=== PATIENT | male | born 1990 | race Caucasian/White ===

== ENCOUNTER 2020-05-05 18:54 | Emergency (ER) | payer SELFPAY ==
[~2020-05-05] VITALS: Ht 180.3 cm; Wt 131.5 kg
[2020-05-05 19:00] VITALS: BP 132/84
== END 2020-05-05 21:28 | disposition home or self-care (01) ==
LOC: ER 18:54 → EDBD 18:54 → ER 21:28
DX: S89.92XA Unspecified injury of left lower leg, initial encounter (principal); V89.2XXA Person injured in unspecified motor-vehicle accident, traffic, initial encounter; Y93.89 Activity, other specified; Y92.89 Other specified places as the place of occurrence of the external cause; Y99.8 Other external cause status
CPT/HCPCS: 73562; 73590

== ENCOUNTER 2025-02-06 10:23 | Emergency (ER) | payer MEDICAID, OTHER ==
[~2025-02-06] VITALS: Ht 182.9 cm; Wt 161.5 kg
--- NOTE | 2025-02-06 10:43 | ED.PDOC ---
HPI (NEURO) HPI Comments HPI: Initial Vitals BP: HR: RR: O2 Sat: Temp: Past Medical history: Denies Past Surgical history: Denies Medications: Denies Social History: Occasional ETOH. Denies smoking and drug use. Allergies: NKDA HPI: Poor Historian. 34-year-old male presents to emergency depart for evaluation of dizziness vertigo-like presentation worse in the morning and worse with head movement with the associated nausea and vomiting. His last time he had vomiting with this past Monday however he still has the vertigo/dizziness. Onset of symptoms last . Denies any other acute symptoms. Denies any pain anywhere else in his body. REVIEW OF SYSTEMS: CONSTITUTIONAL: Denies acute: fever, diaphoresis, chills, HEAD: Denies acute: headache, photophobia Eyes: Denies acute: Double vision, vision loss, eye pain, eye discharge. EARS: Denies acute: tinnitus, hearing loss, ear discharge, ear pain, THROAT: Denies acute: sore throat, swelling, difficulty swallowing , pain with swallowing, change in voice. NECK: Denies acute: neck pain, neck swelling, stiff neck. HEART: Denies acute : chest pain, palpitations, LUNGS: Denies acute: SOB, wheezing, cough, hemoptysis ABDOMEN: Denies acute: abdominal pain, Nausea, Vomiting, diarrhea, melena , hematemesis, hematochezia SKIN: Denies acute: rash, redness, lesions, itchiness. EXTREMITIES: Denies acute: calf pain, numbness, tingling, weakness, denies pain in extremity. Denies acute: Low back pain. Neuro: Denies acute: focal neurological deficit, motor or sensory focal neurological deficit, tremors, seizure like activity, confusion, change in mental status, loss of bowel or bladder function, cauda equina like symptoms. : Denies acute: dysuria, hematuria, flank pain, increase in urinary frequency. PSYCH: Denies acute: hallucination, suicidal ideation, homicidal ideation. PHYSICAL EXAM: General: ---mild-----acute distress, awake and alert. Head: normocephalic, atraumatic. Neck: supple, trachea is midline, no swelling. Throat: Normal phonation. Eyes:, no erythema, no purulent discharge, no proptosis, no icterus. Heart: regular rate, regular rhythm, no significant murmur appreciated. Lungs: no apparent respiratory distress, Able to speak in full sentences. No wheezing, no rhonchi, no crackles. No stridors Clear to auscultation bilaterally. Abdomen: non tender to palpation, non distended, soft, no guarding, no rebound, + bowel sounds. Obese Neuro: Awake, Alert, oriented to name, self, situation, follows commands GCS=15. Speech is normal. Skin: no petechia, no purpura, no cyanosis, non-pale, not jaundice. Lower extremities: --trace bilateral - Pitting edema no deformity, no focal swelling, no calf TTP. Makes eye contact. moves all four extremities. Face: no apparent facial droop. Ambulating in the ED independently. Ears: Normal appearing TM b/l, Stroke: finger to nose cerebellar testing is intact. No pronator drift. 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 No nuchal rigidity, Kernig's sign, Brudzinski's sign, no meningeal signs. ED COURSE: DISCLAIMER: This medical document was created using an electronic medical record system with voice recognition software and computerized dictation system. Although this document has been carefully reviewed, there might still be some phonetic and typographical errors. Occasional wrong-word or "sound-alike" substitutions may have occurred due to the inherent limitations of voice recognition software. These areas are purely typographical due to imperfections of the software programs and do not reflect any compromise in the patient's medical care. Please read the chart carefully and recognize, using context, where these substitutions have occurred. Time Seen by MD: 10:42 Primary Care Provider: NONE Reviewed Notes: Medications, Allergies Information Source: Patient Mode of Arrival: Ambulatory Was a procedure done? Was a procedure done?: No Differential Diagnosis (SZ) General Weakness: Anemia, CVA, Dehydration, Dysrhythmia, Electrolyte imbalance, Encephalopathy, Guillain-[place], Hypoglycemia, Hypotension, Hypovolemia, Labyrinthitis, Meniere's disease, Myasthenia gravis, Myocardial infarction, Pulmonary embolus, Renal failure, Repiratory failure, TIA, VBI, Vertigo: central, Vertigo: peripheral, Vestibular neuronitis X-Ray, Labs, Meds, VS Vital Signs Date Time Temp Pulse Resp B/P (MAP) Pulse Ox O2 Delivery O2 Flow Rate FiO2 02/06/25 17:02 98.3 82 16 136/80 (98) 98 98.3 02/06/25 14:46 98.0 84 18 149/100 (116) 95 98.0 02/06/25 10:40 98.0 98 19 138/88 (105) 96 98.0 Lab Test 02/06/25 13:45 02/06/25 11:48 02/06/25 10:43 Range/Units Lactic Acid Level 1.6 2.1 *H 0.4-2.0 mmol/L White Blood Count 9.8 4.4-10.8 10^3/uL Red Blood Count 5.29 4.5-5.90 10^6/uL Hemoglobin 15.4 13.5-17.5 g/dL Hematocrit 45.8 41.0-53.0 % Mean Corpuscular Volume 86.7 80.0-100.0 fL Mean Corpuscular Hemoglobin 29.0 28.0-32.0 pg Mean Corpuscular Hemoglobin Concent 33.5 32.0-36.0 g/dL Red Cell Distribution Width 14.8 H 11.8-14.3 % Platelet Count 277 140-450 10^3/uL Mean Platelet Volume 8.5 6.9-10.8 fL Neutrophils (%) (Auto) 70.5 37.0-80.0 % Lymphocytes (%) (Auto) 19.8 10.0-50.0 % Monocytes (%) (Auto) 7.3 0.0-12.0 % Eosinophils (%) (Auto) 1.8 0.0-7.0 % Basophils (%) (Auto) 0.6 0.0-2.0 % Neutrophils # (Auto) 6.9 1.6-8.6 10 ^3/uL Lymphocytes # (Auto) 1.9 0.4-5.4 10 ^3/uL Monocytes # (Auto) 0.7 0-1.3 10 ^3/uL Eosinophils # (Auto) 0.2 0-0.8 10 ^3/uL Basophils # (Auto) 0.1 0-0.2 10 ^3/uL Nucleated Red Blood Cells 0.0 % Sodium Level 141 136-145 mmol/L Potassium Level 4.4 3.5-5.1 mmol/L Chloride Level 104 98-107 mmol/L Carbon Dioxide Level 29 20-31 mmol/L Anion Gap 8 5-15 Blood Urea Nitrogen 10 9-23 mg/dL Creatinine 0.92 0.700-1.30 mg/dL Glomerular Filtration Rate Calc 113 >90 mL/min BUN/Creatinine Ratio 10.9 10.0-20.0 Serum Glucose 110 H 74-106 mg/dL Calcium Level 10.1 8.7-10.4 mg/dL Magnesium Level 2.0 1.6-2.6 mg/dL Total Bilirubin 0.4 0.2-1.0 mg/dL Aspartate Amino Transferase (AST) 23 <34 U/L Alanine Aminotransferase (ALT) 49 H 7-40 U/L Alkaline Phosphatase 94 46-116 U/L Troponin I High Sensitivity < 3 L </=54 ng/L Total Protein 7.5 5.7-8.2 g/dL Albumin 4.8 3.2-4.8 g/dL Plasma/Serum Blood Alcohol < 3.0 <10 mg/dL POC Glucose 109 H 70-106 mg/dl Current Medications Medications (Trade) Dose Ordered Sig/Elizabeth Route Start Time Stop Time Status Last Admin Sodium Chloride 1,000 ml @ 1,000 mls/hr Q1H ONCE IV 02/06/25 11:15 02/06/25 12:14 DC 02/06/25 16:02 Meclizine HCl (Antivert Tablet) 25 mg ONCE ONCE PO 02/06/25 11:15 02/06/25 11:16 DC 02/06/25 16:01 [place] [id number] Ph: [phone] DIAGNOSTIC IMAGING Diagnostic Imaging Report : [id number] Signed PATIENT: MARCIAL BOONE ACCT: [id number] UNIT: [id number] : 1990 LOC: ER ROOM / BED: / AGE / SEX: 34 / M ADM STATUS: REG ER SERVICE 1103 ORDERING PHYSICIAN: SKYLAR OWENS DO PROCEDURE(s): CXRP - CHEST PORTABLE REASON: DIZZY/VERTIGO ORDER NUMBER(s): [id number], ACCESSION NUMBER(s): [id number] CHEST RADIOGRAPH Indication: DIZZY/VERTIGO Technique: Single frontal view of the chest was obtained COMPARISON: None FINDINGS: Lines and Tubes: None Lungs: Clear Pleura: No effusion. No pneumothorax. Cardiomediastinal contours: Unremarkable Bones: Unremarkable IMPRESSION: No acute disease. ATED BY: HANK STANLEY MD DICTATED DATE/TIME: 02/06/25 1130 SIGNED BY: HANK STANLEY MD SIGNED DATE/TIME: 02/06/25 1130 CC: Time of 1ST Reevaluation: 11:42 Reevaluation 1ST: Unchanged Time of 2ND Reevaluation: 15:35 (As of now, none of the medicines fluids or interventions has been given to the patient yet for reassessment before we make a disposition.) Time of 3RD Reevaluation: 16:39 Reevaluation 3RD: Resolved Patient Education/Counseling: Diagnosis, Treatment Family Education/Counseling: No Family Present Comments Patient presented with the above HPI.----dizziness--workup was initiated. patient was found with the above mentioned diagnosis. the following medications were ordered: please refer to order lists of meds and tests obtained by myself Dr. Owens. Patient ED course and VS have been stabilized. Patient has been reassessed in the ED and remained in a stable condition. Pertinent incidental findings were discussed with the patient and/or family. Patient/family voices understanding and is agreeable with plan. Patient has been observed in the ED adequate length of time to insure improvement/stability. Escalation of care considered: Consideration of escalation to observation or admission Patient was given fluids and meclizine. Patient was reassessed and his symptoms have completely resolved. There has been a delay this patient's care due to being under staffed and lacking nurses and providers. Patient was DISCHARGED home in a stable condition. All the reports of any imaging studies that were ordered by myself were reviewed by myself. Departure 1 Departure Time of Disposition: 16:37 Impression: Primary Impression: Vertigo Disposition: 01 HOME / SELF CARE / HOMELESS Condition: Stable Additional Instructions: Additional instructions: You MUST follow-up with your primary care/family doctor in 1 to 2 days. If you are unable to see your primary care/family doctor, please return to our emergency room for re-assessment and re-evaluation in 1 to 2 days. Return to the emergency room here in our facility or to the nearest ER [facility] if your symptoms change or worsen. CONSULTATIONS: you MUST Follow-up for consultation as soon as possible with: neurology and ENT doctor in 1-2 days. Please call for appointment You MUST call the consultants office yourself to make an appointment. You may need to arrange that through your insurance and/or your primary/family doctor. If you are unable to see the net developer consultant in 1 to 2 days, you must return to our emergency room (or any other ER of your choice) for re-assessment and re- evaluation. Adequate fluid hydration. e-Prescriptions Meclizine HCl (Meclizine 25) 25 Mg Tab 25 MG PO Q8HPRN PRN for 3 Days, #9 TAB Prov: SKYLAR OWENS DO 02/06/25 Discharged With: Self Critical Care Note Critical Care Time?: No I personally scribed for SKYLAR OWENS DO ([email or web address]) on 02/06/25 at 10:43. Electronically submitted by Moreno Uribe ([email or web address]). I personally scribed for SKYLAR OWENS DO ([email or web address]) on 02/06/25 at 14:39. Electronically submitted by Moreno Uribe ([email or web address]). SKYLAR OWENS DO Feb 06, 2025 10:43
--- NOTE | 2025-02-06 11:32 | DVH ---
CHEST RADIOGRAPH Indication: DIZZY/VERTIGO Technique: Single frontal view of the chest was obtained COMPARISON: None FINDINGS: Lines and Tubes: None Lungs: Clear Pleura: No effusion. No pneumothorax. Cardiomediastinal contours: Unremarkable Bones: Unremarkable IMPRESSION: No acute disease.
[2025-02-06 12:02] LABS: Basophils # (auto) 0.1 10 ^3/uL (0-0.2); Basophils % (auto) 0.6 % (0.0-2.0); Eosinophils # (auto) 0.2 10 ^3/uL (0-0.8); Eosinophils % (auto) 1.8 % (0.0-7.0); Hematocrit 45.8 % (41.0-53.0); Hemoglobin 15.4 g/dL (13.5-17.5); Lymphocytes # (auto) 1.9 10 ^3/uL (0.4-5.4); Lymphocytes % (auto) 19.8 % (10.0-50.0); Mean Corpuscular Hgb Conc. 33.5 g/dL (32.0-36.0); Mean Corpuscular Volume 86.7 fL (80.0-100.0); Monocytes # (auto) 0.7 10 ^3/uL (0-1.3); Monocytes % (auto) 7.3 % (0.0-12.0); Neutrophils # (auto) 6.9 10 ^3/uL (1.6-8.6); Neutrophils % (auto) 70.5 % (37.0-80.0); Platelet Count (auto) 277 10^3/uL (140-450); Red Blood Cells 5.29 10^6/uL (4.5-5.90); Red Cell Distribution Width 14.8 % (11.8-14.3); White Blood Cell 9.8 10^3/uL (4.4-10.8)
[2025-02-06 12:20] LABS: Alkaline Phosphatase 94 U/L (46-116); Anion Gap 8 (5-15); Aspartate Aminotransferase 23 U/L (<34); BUN/Creatinine Ratio 10.9 (10.0-20.0); Bilirubin, Total 0.4 mg/dL (0.2-1.0); Blood Urea Nitrogen 10 mg/dL (9-23); Calcium 10.1 mg/dL (8.7-10.4); Carbon Dioxide 29 mmol/L (20-31); Chloride 104 mmol/L (98-107); Potassium 4.4 mmol/L (3.5-5.1); Sodium 141 mmol/L (136-145); Total Protein 7.5 g/dL (5.7-8.2)
[2025-02-06 12:22] LABS: Alanine Aminotransferase 49 U/L (7-40); Albumin 4.8 g/dL (3.2-4.8); Blood Alcohol < 3.0 mg/dL (<10); Glucose 110 mg/dL (74-106)
[2025-02-06 12:30] LABS: Lactic Acid w/Reflex 2.1 mmol/L (0.4-2.0)
[2025-02-06] MEDS: MECLIZINE HCL 25 MG TAB PO ONE (16:01)
[2025-02-06] MEDS: SODIUM CHLORIDE 0.9% 1,000 ML IV ONE (16:02)
[2025-02-06] MEDS ORDERED: MECL1TAB42 PO (16:39)
[2025-02-06 17:02] VITALS: BP 136/80; PULSE 82; RESP 16; TEMP 98.3; O2SAT 98
== END 2025-02-06 17:25 | disposition home or self-care (01) ==
LOC: ER 10:23
DX: R42 Dizziness and giddiness (principal); Z79.899 Other long term (current) drug therapy
CPT/HCPCS: 36415; 71045; 80053; 80320; 82947; 83605; 83735; 84484; 85025; 96360; 99284; J7030; J8597; 82962